=== PATIENT | male | born 1980 | race Caucasian/White ===

== ENCOUNTER → 2017-04-22 | Outpatient (CLI) | payer OTHER ==
[2017-04-22 10:58] LABS: ALBUMIN 4.1 GM/DL (3.2-5.2); ALBUMIN/GLOBULIN RATIO 1.37 (1.00-1.93); BILIRUBIN,DIRECT 0.1 MG/DL (0.0-0.2); BILIRUBIN,TOTAL 0.4 MG/DL (0.2-1.0); TOTAL PROTEIN 7.1 GM/DL (6.4-8.2)
== END ==
LOC: M LAB 09:16
PROVIDERS: ATTEND Family Medicine
DX: F11.20 Opioid dependence, uncomplicated (principal)

== ENCOUNTER 2018-03-04 17:55 | Emergency (ER) | payer OTHER | END 2018-03-04 18:02 | disposition home or self-care (01) | LOC: M ED 17:55 | DX: K04.7 Periapical abscess without sinus (principal); F11.10 Opioid abuse, uncomplicated; Z72.0 Tobacco use | CPT/HCPCS: 99283 ==

== ENCOUNTER → 2018-07-07 | Outpatient (REF) | payer MEDICAID, OTHER ==
[2018-07-07 13:32] LABS: PROSTATIC SPECIFIC AG MONITOR 1.7 NG/ML (< 4.0)
[2018-07-07 13:33] LABS: BASO # 0.1 10^3/uL (0.0-0.2); BASO % 1.5 % (0.0-1.0); EOS # 0.3 10^3/uL (0.0-0.50); EOS % 4.5 % (0.0-3.0); HEMATOCRIT 43.6 % (42.0-52.0); HEMOGLOBIN 14.6 g/dl (13.5-17.5); IMMATURE GRANULOCYTE % 0.3 % (0-3.0); LYMPH # 2.6 10^3/uL (1.5-4.5); LYMPH % 35.5 % (24.0-44.0); MEAN CORPUSCULAR HEMOGLOBIN 29.5 pg (27.0-33.0); MEAN CORPUSCULAR HGB CONC 33.5 g/dl (32.0-36.5); MEAN CORPUSCULAR VOLUME 88.1 fl (80.0-96.0); MONO # 0.9 10^3/uL (0.0-0.8); MONO % 12.3 % (0.0-5.0); NEUTROPHILS # 3.4 10^3/uL (1.8-7.7); NEUTROPHILS % 45.9 % (36.0-66.0); PLATELET COUNT, AUTOMATED 267 10^3/uL (150-450); RED BLOOD COUNT 4.95 10^6/uL (4.30-6.10); RED CELL DISTRIBUTION WIDTH 12.9 % (11.5-14.5); WHITE BLOOD COUNT 7.3 10^3/uL (4.0-10.0)
[2018-07-07 14:01] LABS: TESTOSTERONE 373 NG/DL (241-827)
== END ==
LOC: M LAB REF 12:15
DX: F11.11 Opioid abuse, in remission (principal); N52.8 Other male erectile dysfunction

== ENCOUNTER → 2019-02-11 | Outpatient (REF) | payer OTHER, MEDICAID ==
[~2019-02-11] MED LIST: IBUP-1022 PO; PENI500T PO
[2019-02-11 18:48] LABS: ALBUMIN 4.1 GM/DL (3.2-5.2); ALT/SGPT 20 U/L (12-78); BILIRUBIN,TOTAL 0.4 MG/DL (0.2-1.0); BLOOD UREA NITROGEN 11 MG/DL (7-18); C REACTIVE PROTEIN QUANTITATIV 0.39 MG/DL (0.00-0.30); CALCIUM LEVEL 8.5 MG/DL (8.5-10.1); CARBON DIOXIDE LEVEL 27 MEQ/L (21-32); CHLORIDE LEVEL 105 MEQ/L (98-107); FREE T4 1.11 NG/DL (0.76-1.46); GLOMERULAR FILTRATION RATE > 60.0 (>60); GLUCOSE, FASTING 139 MG/DL (70-100); POTASSIUM SERUM 3.9 MEQ/L (3.5-5.1); SODIUM LEVEL 139 MEQ/L (136-145); TOTAL PROTEIN 7.1 GM/DL (6.4-8.2)
[2019-02-11 19:00] LABS: BASO # 0.1 10^3/uL (0.0-0.2); BASO % 1.7 % (0.0-1.0); EOS # 0.1 10^3/uL (0.0-0.50); EOS % 2.2 % (0.0-3.0); HEMATOCRIT 40.5 % (42.0-52.0); HEMOGLOBIN 13.4 g/dl (13.5-17.5); MEAN CORPUSCULAR HEMOGLOBIN 28.8 pg (27.0-33.0); MEAN CORPUSCULAR HGB CONC 33.1 g/dl (32.0-36.5); MEAN CORPUSCULAR VOLUME 87.1 fl (80.0-96.0); MONO # 0.4 10^3/uL (0.0-0.8); MONO % 7.4 % (0.0-5.0); NEUTROPHILS # 2.8 10^3/uL (1.8-7.7); NEUTROPHILS % 52.5 % (36.0-66.0); PLATELET COUNT, AUTOMATED 244 10^3/uL (150-450); RED BLOOD COUNT 4.65 10^6/uL (4.30-6.10); WHITE BLOOD COUNT 5.4 10^3/uL (4.0-10.0)
[2019-02-11 19:03] LABS: HEMOGLOBIN A1c 6.1 %
[2019-02-11 19:29] LABS: HIV 1&2 SCREEN CENTAUR NEGATIVE (NEGATIVE)
[2019-02-11 20:45] LABS: ERYTHROCYTE SEDIMENTATION RATE 2 mm/hr (0-15)
== END ==
LOC: M LAB REF 17:46
PROVIDERS: ATTEND Nurse Practitioner Adult Health
DX: R63.4 Abnormal weight loss (principal)

== ENCOUNTER → 2019-05-09 | Outpatient (REF) | payer OTHER, MEDICAID ==
[~2019-05-09] MED LIST changes: +AMLO10TA5 PO; +SUBO8MIS SL; +TRAZ1TAB14 PO; +VIAG100T PO; +WELLTAB40 PO
[2019-05-09 19:57] LABS: HEMOGLOBIN A1c 5.6 %
== END ==
LOC: M LAB REF 18:34
PROVIDERS: ATTEND Nurse Practitioner Adult Health
DX: R73.03 Prediabetes (principal)

== ENCOUNTER → 2019-05-18 | Day surgery (SDC) | payer OTHER ==
[~2019-05-18] VITALS: Ht 175.3 cm; Wt 63.5 kg
[~2019-05-18] MED LIST changes: +AMPICILLIN SOD/SULBACTAM SOD 3 GM in D5W MINI-BAG PLUS 100 ML IV ONE; +LIDOCAINE 2% INJ 100 MG/5 ML SDV (FOR ANES.) As Ordered ONE; +LR 1,000 ML IV ONE; +MIDAZOLAM INJ 2 MG/2 ML VIAL (J2250) As Ordered ONE; +ONDANSETRON 4MG/2ML VIAL (J2405) As Ordered ONE; +PROPOFOL 200 MG/20 ML VIAL As Ordered ONE; +dexameTHASONE 4 MG/ML 1ML VIAL (J1100) As Ordered ONE; +dexameTHASONE 4 MG/ML 1ML VIAL (J1100) IV ONE; +fentaNYL 100 MCG/2 ML INJECTION (J3010) As Ordered ONE
== END | disposition home or self-care (01) ==
LOC: M SDC 11:29
PROVIDERS: ATTEND Dentist
DX: K02.9 Dental caries, unspecified (principal); Z53.9 Procedure and treatment not carried out, unspecified reason

== ENCOUNTER → 2019-10-14 | Outpatient (CLI) | payer OTHER ==
[~2019-10-14] MED LIST changes: -AMPICILLIN SOD/SULBACTAM SOD 3 GM in D5W MINI-BAG PLUS 100 ML IV ONE; -LIDOCAINE 2% INJ 100 MG/5 ML SDV (FOR ANES.) As Ordered ONE; -LR 1,000 ML IV ONE; -MIDAZOLAM INJ 2 MG/2 ML VIAL (J2250) As Ordered ONE; -ONDANSETRON 4MG/2ML VIAL (J2405) As Ordered ONE; -PROPOFOL 200 MG/20 ML VIAL As Ordered ONE; -dexameTHASONE 4 MG/ML 1ML VIAL (J1100) As Ordered ONE; -dexameTHASONE 4 MG/ML 1ML VIAL (J1100) IV ONE; -fentaNYL 100 MCG/2 ML INJECTION (J3010) As Ordered ONE
[2019-10-14 14:19] LABS: HEMOGLOBIN A1c 5.7 %
== END ==
LOC: M LAB 13:37
PROVIDERS: ATTEND Nurse Practitioner Adult Health
DX: R73.03 Prediabetes (principal)

== ENCOUNTER → 2020-04-09 | Outpatient (REF) | payer OTHER, MEDICAID ==
[~2020-04-09] MED LIST changes: -AMLO10TA5 PO; +AMLO1TAB25 PO
[2020-06-04 22:00] LABS: HEMOGLOBIN A1c 5.9 %
[2020-06-04 23:31] LABS: ALT/SGPT 15 U/L (12-78); BILIRUBIN,TOTAL 0.3 MG/DL (0.2-1.0); BLOOD UREA NITROGEN 12 MG/DL (7-18); CALCIUM LEVEL 8.9 MG/DL (8.5-10.1); CARBON DIOXIDE LEVEL 29 MEQ/L (21-32); CHLORIDE LEVEL 107 MEQ/L (98-107); CHOLESTEROL LEVEL 131 MG/DL (<200); CHOLESTEROL RISK RATIO 2.519 (<5); GLOMERULAR FILTRATION RATE > 60.0 (>60); GLUCOSE, FASTING 93 MG/DL (70-100); HDL CHOLESTEROL 52 MG/DL (>40); LDL CHOLESTEROL 73 MG/DL (<100); NON-HDL-C 79 MG/DL; POTASSIUM SERUM 4.3 MEQ/L (3.5-5.1); SODIUM LEVEL 139 MEQ/L (136-145); TOTAL PROTEIN 6.7 GM/DL (6.4-8.2); TRIGLYCERIDES LEVEL 31 MG/DL (<150)
== END ==
LOC: M LAB REF 08:16
PROVIDERS: ATTEND Family Medicine Addiction Medicine
DX: R73.03 Prediabetes (principal)

== ENCOUNTER → 2020-05-18 | Outpatient (CLI) | payer OTHER, MEDICAID ==
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
== END ==
LOC: M RAD 12:45
PROVIDERS: ATTEND Family Medicine Addiction Medicine
DX: S50.35 Superficial foreign body of elbow (principal); X58.XXXD Exposure to other specified factors, subsequent encounter

== ENCOUNTER 2022-08-18 08:43 | Emergency (ER) | payer MEDICAID, OTHER ==
[~2022-08-18] VITALS: Ht 175.3 cm; Wt 68.2 kg
[2022-08-18 08:44] VITALS: BP 180/82
[2022-08-18] MEDS ORDERED: CLEO300C2 PO (09:28)
[2022-08-18] MEDS ORDERED: IBUP-1022 PO (09:28)
== END 2022-08-18 09:36 | disposition home or self-care (01) ==
LOC: M ED 08:43
DX: K02.9 Dental caries, unspecified (principal); Z79.899 Other long term (current) drug therapy; I10 Essential (primary) hypertension; F11.10 Opioid abuse, uncomplicated; F17.210 Nicotine dependence, cigarettes, uncomplicated